=== PATIENT | male | born 1935 | race Caucasian/White ===

== ENCOUNTER 2020-05-04 09:35 | Emergency (ER) | payer MEDICARE, OTHER, SELFPAY ==
[2020-05-04 09:40] VITALS: BP 119/69; PULSE 68; RESP 14; TEMP 36.8; O2SAT 96
--- NOTE | 2020-05-04 09:48 | ED.SKABFB ---
HPI - Skin/Abscess/Foreign Bdy General Chief complaint: Skin/Abscess/Foreign Body Stated complaint: rash on left arm Time Seen by Provider: 05/04/20 10:03 Source: patient and RN notes reviewed Mode of arrival: ambulatory Limitations: no limitations History of Present Illness HPI narrative: 85 male presents concern for a rash on his left arm and spreading to his right arm. Reports rash started approximately 1 week ago. Reports he has been using IV dry and Benadryl with little relief. Reports blistering, clear drainage. He denies fever, nausea, vomiting, diarrhea, swollen lips, swollen tongue, difficulty breathing, difficulty swallowing. MD complaint: rash Related Data Home Medications Medication Instructions Recorded Confirmed amlodipine DAILY 05/04/20 fluticasone propionate INTRANASAL 05/04/20 furosemide 05/04/20 hydrochlorothiazide 05/04/20 lisinopril 05/04/20 verapamil mg PO 05/04/20 Allergies Allergy/AdvReac Type Severity Reaction Status Date / Time No Known Allergies Allergy Verified 05/04/20 10:20 Review of Systems Review of Systems: Narrative: CONSTITUTIONAL: Denies malaise, chills, sweats, or fever. ENT: Denies left consult CARDIOVASCULAR: Denies chest pain, palpitations, or edema. RESPIRATORY: Denies cough or dyspnea. GASTROINTESTINAL: Denies abdominal pain, nausea, vomiting, diarrhea SKIN: Reports itchy rash on left arm, spreading the right arm MUSCULOSKELETAL: Denies <del>back</del> <del>pain,</del> <del>joint</del> <del>pain,</del> <del>or</del> myalgia. NEUROLOGIC: Denies numbness, weakness All systems reviewed & are unremarkable except as noted in HPI and below PMFSH Comments At time of signature, agree with nursing past medical, surgical, social and family history. There is no relevant family history pertinent to the presenting complaint Exam Narrative: Exam Narrative: GENERAL: Well-appearing, well-nourished, and in no acute distress. HEAD: Normocephalic, atraumatic. EYES: PERRLA, conjunctivae clear ENT: Nares clear. Mucous membranes moist. Oropharynx without edema, erythema or lesions. Tonsils not enlarged and without exudate. NECK: Supple. CHEST: No respiratory distress. Clear to auscultation. No bony deformities, no asymmetry. Speaks in full sentences. HEART: Regular rate and rhythm. No murmur heard. SKIN: Warm, dry. 2 patches of plaque with vesicles and serous fluid noted to left arm, small patch of erythema noted to right arm NEURO: Alert and oriented x3. PSYCH: Normal mood and affect Course Course Emergency Course: Patient is aware of diagnosis, understands and agrees to treatment plan. Anticipatory guidance given. Patient agrees to follow-up as directed and is aware of reasons to seek care at the emergency department. Portions of this record may have been created with voice recognition software Vital Signs Vital signs: Vital Signs Temperature 98.3 F 05/04/20 09:40 Pulse Rate 68 05/04/20 09:40 Respiratory Rate 14 05/04/20 09:40 Blood Pressure 119/69 05/04/20 09:40 Pulse Oximetry 96 05/04/20 09:40 Temperature 98.3 F 05/04/20 09:40 Pulse Rate 68 05/04/20 09:40 Respiratory Rate 14 05/04/20 09:40 Blood Pressure 119/69 05/04/20 09:40 Pulse Oximetry 96 05/04/20 09:40 Reviewed. MDM - Skin/Abscess/Foreign Bdy MDM Narrative Medical decision making narrative: Does not appear at this time to be erythema multiforme, bullous, SJS, TEN; no evidence at this time to suggest RMSF, endocarditis or Lyme disease; patient looks well, nontoxic and is tolerating oral intake; no neurologic signs or symptoms; no headache, photophobia or neck pain; afebrile; appropriate for initial outpatient treatment; discussed the importance of follow-up, patient agrees; question, viral exanthema, contact dermatitis, allergic dermatitis, eczema, urticaria, shingles. No soft palate or uvula edema, no tongue, lip edema or other mucosal involvement, no respiratory compromise, no
== END 2020-05-04 10:30 | disposition home or self-care (01) ==
PROVIDERS: Emergency Provider Nurse Practitioner; PCP Internal Medicine
DX: L25.5 Unspecified contact dermatitis due to plants, except food (principal); I10 Essential (primary) hypertension
CPT/HCPCS: 99203; G0463